=== PATIENT | male | born 1995 | race Caucasian/White ===

== ENCOUNTER 2017-10-13 11:17 | Emergency (ER) | payer SELFPAY ==
[2017-10-13] MEDS ORDERED: TRIMETH/SULFA DS 160-800MG TAB PO ONE (11:55)
[2017-10-13 12:00] VITALS: BP 111/82
[2017-10-13] MEDS ORDERED: SULF-198 PO (12:03)
--- NOTE | 2017-10-13 12:06 | ER Report ---
History and Physical Time Seen By MD: 11:30 Hx. of Stated Complaint: pt presents with c/o of cyst ohn l abdomen since 2 days ago. 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 This is starting to get painful. 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 He reports he noticed a cyst on his left belt line and wanted to be proactive with treatment because he has had such a complicated history of cellulitis in the past. He points to two healed and scarred sites on his back and lower abdomen that he reports were due to MRSA infection. The site is red, inflamed, and painful to pressure or palpation. He reports a history of alcoholism and stress that may be contributing to his low immune system. No treatments tried. ROS: Constitutional: denies fever, chills, night sweats CV: denies chest pain Respiratory: denies shortness of breath Skin: reports healed cystic wound on left shoulder and lower abdomen, reports cyst on left lower abdomen Allergies: Coded Allergies: No Known Drug Allergies (Unverified , 10/13/17) Home Meds Active Scripts Sulfamethoxazole/Trimet 800-160 Mg Tab (BACTRIM DS TABLET) 1 Each Tablet, 1 TAB PO Q12H for 10 Days, #20 TAB Prov:PARKER TSAI RU 10/13/17 Past Medical/Surgical History Bi-polar disorder multiple concussions cellulitis Reviewed Nurses Notes: Yes Hx Substance Use Disorder: Yes (occ pot) Hx Alcohol Use: Yes (1 weekly) Constitutional Vital Sign - Last 24 Hours 10/13/17 10/13/17 10/13/17 10/13/17 11:17 11:20 11:21 11:30 Temp 98.1 Pulse ??? 110 Resp 20 B/P (MAP) 136/98 136/98 (111) 136/86 (103) Pulse Ox 97 O2 Delivery Room Air 10/13/17 10/13/17 11:47 12:00 Pulse 89 B/P (MAP) 111/82 (92) Pulse Ox 96 Physical Exam Constitutional: 22-year-old male in no acute distress HEENT: normocephalic, atraumatic, Respiratory: BL, equal respiratory excursion, CTA BL CV: Clear S1 S2, no murmur Skin: left shoulder and suprapubic region with dense granulation tissue, left lower abdominal quadrant with closed cystic lesion Musculoskeletal: moves all extremities Neuro: alert and oriented x 4, interactive Differential diagnoses considered: cyst, cellulitis, laceration, lymphadenopathy Medical Decision Making ED Course/Re-evaluation ED Course 22-year-old male presents to the Emergency Department for a left lower abdominal cyst. He states he has had two previous occurrences of cystic lesions and they were MRSA so he wanted to be proactive about his cyst today. History and physical examination obtained, differential diagnoses considered and shared with the patient. The cyst is deep in the subcutaneous tissue and lancing the site does not appear to be indicated at this time. The patient has been sent home for self-care on a course of Bactrim. He has been encouraged to return to the emergency department if he experiences worsening of symptoms. The patient states agreement and has no further questions at this time. Decision to Disposition Date: Oct 13, 2017 Decision to Disposition Time: 12:05 Depart Departure Latest Vital Signs Vital Signs Date Time Temp Pulse Resp B/P (MAP) Pulse Ox O2 Delivery O2 Flow Rate FiO2 10/13/17 12:00 111/82 (92) 10/13/17 11:47 89 96 10/13/17 11:20 98.1 20 Room Air Impression: Primary Impression: Cellulitis, abdominal wall Condition: Improved Disposition: HOME OR SELF-CARE New Scripts Sulfamethoxazole/Trimet 800-160 Mg Tab (BACTRIM DS TABLET) 1 Each Tablet 1 TAB PO Q12H for 10 Days, #20 TAB Prov: PARKER TSAI 10/13/17 Patient Instructions: Cellulitis (ED) Additional Instructions: Take Bactrim once in the morning and once at night for 10 days. Finish the entire course of antibiotics. Keep the site clean and dry. Return to the Emergency Department if your condition worsens. Seek medical attention if you do not see improvement within 3-5 days. PARKER TSAI Oct 13, 2017 12:05
== END 2017-10-13 12:17 | disposition home or self-care (01) ==
LOC: ER 11:30
DX: L03.311 Cellulitis of abdominal wall (principal)
CPT/HCPCS: 99283